=== PATIENT | male | born 1985 | race Caucasian/White ===

== ENCOUNTER 2018-10-09 11:54 | Emergency (ER) | payer MEDICAID ==
[~2018-10-09] VITALS: Ht 177.8 cm; Wt 81.8 kg
[2018-10-09 13:40] VITALS: BP 138/79
== END 2018-10-09 13:47 | disposition home or self-care (01) ==
LOC: EMS 11:56
DX: F10.20 Alcohol dependence, uncomplicated (principal); F17.210 Nicotine dependence, cigarettes, uncomplicated; F11.90 Opioid use, unspecified, uncomplicated; Z76.0 Encounter for issue of repeat prescription
CPT/HCPCS: 99406